=== PATIENT | male | born 1965 | race Caucasian/White ===

== ENCOUNTER → 2019-11-30 | Day surgery (SDC) | payer BC, OTHER ==
[2019-11-26 13:47] LABS: BASOPHILS # (AUTO) 0.1 (0.0-0.1); BASOPHILS % 0.9 % (0.0-1.0); EOSINOPHILS # (AUTO) 0.1 (0.0-0.4); EOSINOPHILS % 0.8 % (0.0-6.0); HEMATOCRIT 47.1 % (38.2-49.6); LYMPHOCYTES % 20.8 % (18.0-39.1); MEAN CORPUSCULAR VOLUME 94.2 fL (81-99); MONOCYTES # (AUTO) 0.7 (0.2-0.8); MONOCYTES % 6.7 % (4.4-11.3); NEUTROPHILS # (AUTO) 6.9 (2.1-6.9); NEUTROPHILS % 70.4 % (38.7-80.0); PLATELET COUNT 330 x10e3/uL (140-360)
[2019-11-26 14:01] LABS: INR 0.79; PARTIAL THROMBOPLASTIN TIME 23.9 seconds (23.8-35.5); PROTHROMBIN TIME 11.4 seconds (11.9-14.5)
[2019-11-26 14:06] LABS: ALANINE AMINOTRANSFERASE 29 IU/L (0-55); ALBUMIN 3.9 g/dL (3.5-5.0); ALBUMIN/GLOBULIN RATIO 1.3 (0.8-2.0); ALKALINE PHOSPHATASE 45 IU/L (40-150); ANION GAP 13.3 mmol/L (8-16); BLOOD UREA NITROGEN 13 mg/dL (7-26); BUN/CREATININE RATIO 17 (6-25); CALCIUM 9.6 mg/dL (8.4-10.2); CARBON DIOXIDE 26 mmol/L (22-29); CHLORIDE 107 mmol/L (98-107); CHOL/HDL RATIO 4.2 (3.9-4.7); CHOLESTEROL 242 MD/DL (0-199); CREATININE, SERUM 0.78 mg/dL (0.72-1.25); EST GLOMERULAR FILTRATION RATE > 60 ML/MIN (60-); GLUCOSE 71 mg/dL (74-118); HDL CHOLESTEROL 57 MG/DL (40-60); LDL CHOLESTEROL 157 MG/DL (60-130); POTASSIUM 4.3 mmol/L (3.5-5.1); SODIUM 142 mmol/L (136-145); TRIGLYCERIDES 139 MG/DL (0-149)
[2019-11-30] VITALS (11 sets, daily range): BP systolic 121–153; BP diastolic 57–97
[~2019-11-30] VITALS: Ht 165.1 cm; Wt 51.7 kg
[~2019-11-30] MED LIST: ASPIR 8181 MG PO; BENZONATATE100 MG PO; FENTANYL CITRATE/PF 100MCG/2 ML INJ ONE; HEPARIN SOD (PORCINE) 1000 UNIT/ML 30ML ONE; HEPARIN SOD/SOD CHLORIDE 2,000 ML ONE; IOPAMIDOL 370 MG/ML 200 ML INFUS..BTL INJ ONE; ISOSORBIDE MONO30 MG PO; LIDOCAINE HCL 2% LOCAL 20 ML VIAL ONE; LISINOPRIL-HCT1 EAC1 PO; METOPROLOL SUCC50 MG PO; MIDAZOLAM HCL 2 MG/2 ML VIAL ONE; NITROGLYCERIN/D5W 200 MCG/ML 0 ML ONE; SODIUM CHLORIDE 0.9% 1000ML 1,000 ML ONE
--- NOTE | 2019-11-30 14:39 | NUR ---
1439pm RECEIVING NOTE [employer] DEPT............................................................... Bedside report received from Volodymyr BAKER. Identifierx2. Alert oriented and appropriate, PERRLA, respirations even and unlabored to room air. Pulses x4 extremities Pedal pulses left PT/DP Doppler only 1+/1+and marked. Rt 2+/2+ PP Cap fill brisk < 3 sec.Rt groin manual pull flat till 6pm and may dc home Flor will PU outside. Skin warm and dry integrity appears D/I. IV 20g to left hand and 100cchr. Presents healthy w/o s/s of infiltration or complaint. Abdomen soft and supple. pt offered toileting, denies need to urinate or defecate. No personal affects with patient. No Family at bs. Dr Morales attempted to talk to family face to face. CD and dc papers to be given to Pt and family at dc time.Pt verbalizes understanding of POC. f/o4wks Vascular surgeon consult. Currently w/o complaint of pain or need. Back to baseline orientation tolerating po intake.Aware flat till 6pm call light at beside aware to call for help. ds/rn
--- NOTE | 2019-11-30 18:20 | NUR ---
1820pm FACILITIES ENGINEER RECOVERY DISCHARGE NURSING NOTE Pt meets DC criteria. Rtgroin assessed for s/s of complication and presence of hematoma. Skin warm, dry, no discolor, and pulses present. IV removed from left arm. Distal tip appears intact. VS WNL. Pt denies pain, sob, or need at this time. Family at door . DC papers finalized.Has copy of CD and knows about up coming surgical consult with vascular team to be set up for lower leg fix. Review of discharge paperwork and follow up instructions. verbalized understanding. Pt to wheelchair and transported to front of hospital. Transferred to private vehicle under own strength w/o incident with DC paperwork in hand.Aware importance of f/o appointment. - palmira/adam
--- NOTE | 2019-12-14 23:11 | Operative Report ---
DATE OF PROCEDURE: 11/30/2019 SURGEON: Lazaro Ewing MD PROCEDURE INDICATION: Angina pectoris and life-limiting claudication. PROCEDURES PERFORMED: 1. Left heart catheterization. 2. Selective coronary angiography. 3. Abdominal aortogram with lower extremity runoff. PROCEDURE COMPLICATIONS: None. ESTIMATED BLOOD LOSS: Less than 15 mL. PROCEDURE SUMMARY: After consent was obtained, the patient was prepped and draped in a sterile fashion. Access site was infiltrated with 2% lidocaine and with micropuncture kit, a 6-[place] sheath was placed. A JL4 and JR4 catheters were used to engage the left main and right coronary artery. A pigtail catheter was used to cross the aortic valve for hemodynamic measurements and abdominal aortogram, to both lower extremities while the following findings were observed: 1. LV pressure is 115/10 with end-diastolic pressure of 17. 2. Aortic pressure is 112/64. 3. LV-gram reveals preserved left ventricular systolic function with normal regional wall motion, left ventricular ejection fraction is 65-70%. 4. Left main is large in caliber with luminal irregularities gives an LAD and circumflex. 5. The LAD has luminal irregularities proximally after given two diagonals and septal perforators to the distal LAD and a 60% focal area of stenosis in relationship to myocardial bridge. This distal segment of LAD gives 1.75 mm caliber vessel. 6. The circumflex is large in caliber, gives 3 obtuse marginal. The second obtuse marginal has a focal area of 50% stenosis. 7. The right coronary artery is dominant and it has in the midsegment after giving a first RV marginal of area of 20% tubular stenosis, after which a second RV marginal arises. Two terminal branches RPDA and RPLV are showed minimal irregularities. 8. The abdominal aortogram is remarkable for patent renal arteries. The right common iliac artery has 70% calcific stenosis. The left common iliac artery is 100% occluded and chronic total occlusion with heavy calcifications, with distal reconstitution via the internal iliac arteries, which are patent bilaterally. The bilateral external iliac arteries, which are also patent to common femoral arteries. CONCLUSION: Moderate multivessel coronary artery disease with LAD 60% and myocardial bridge, left ventricular systolic function and severe aortoiliac disease with occluded left common iliac artery, and severe stenosis to the right common iliac artery. RECOMMENDATIONS: Optimize medical therapy. Evaluation for suspect COPD as outpatient. Vascular surgery for evaluation for aortic coronary bypass. MD LINDA Donaldson/DENIS /[id number] MTDD
== END | disposition home or self-care (01) ==
LOC: CATH LAB 07:18
PROVIDERS: ATTEND Internal Medicine Cardiovascular Disease
DX: I25.119 Atherosclerotic heart disease of native coronary artery with unspecified angina pectoris (principal); I49.9 Cardiac arrhythmia, unspecified; I10 Essential (primary) hypertension; I70.219 Atherosclerosis of native arteries of extremities with intermittent claudication, unspecified extremity; I70.92 Chronic total occlusion of artery of the extremities; F17.210 Nicotine dependence, cigarettes, uncomplicated; Z01.812 Encounter for preprocedural laboratory examination; Z11.59 Encounter for screening for other viral diseases; Z79.82 Long term (current) use of aspirin; Z82.49 Family history of ischemic heart disease and other diseases of the circulatory system; Z82.3 Family history of stroke
CPT/HCPCS: 36415; 75625; 75710; 80053; 80061; 85025; 85610; 85730; 87635; 93458; C1769; J2001; J2250; J3010; J7030; Q9967; 99152; 99153; J1644